=== PATIENT | male | born 1995 | race Caucasian/White ===

== ENCOUNTER 2019-02-25 13:51 | Emergency (ER) | payer SELFPAY ==
[~2019-02-25] VITALS: Ht 190.5 cm; Wt 118.8 kg
[2019-02-25 13:54] VITALS: BP 172/110
[2019-02-25] MEDS ORDERED: CYCLOBENZAPRINE 10 MG TABLET ONE (14:28)
[2019-02-25] MEDS ORDERED: KETOROLAC 30 MG/1 ML ONE (14:29)
[2019-02-25] MEDS ORDERED: HYDROcodone/APAP 5/325 TABLET ONE (14:29)
[2019-02-25] MEDS ORDERED: HYDROcodone/APAP 5/325 TABLET PO ONE (14:30)
[2019-02-25] MEDS ORDERED: CYCLOBENZAPRINE 10 MG TABLET PO ONE (14:30)
[2019-02-25] MEDS ORDERED: KETOROLAC 30 MG/1 ML IM ONE (14:30)
== END 2019-02-25 15:40 | disposition home or self-care (01) ==
LOC: ED 15:00
DX: S39.012A Strain of muscle, fascia and tendon of lower back, initial encounter (principal); X58.XXXA Exposure to other specified factors, initial encounter; Y93.89 Activity, other specified; Y92.89 Other specified places as the place of occurrence of the external cause; Y99.8 Other external cause status
CPT/HCPCS: 72110; 96372; 99283; J1885